=== PATIENT | female | born 1985 ===

== ENCOUNTER → 2020-08-31 | Outpatient (CLI) | payer SELFPAY ==
[2020-09-05 15:09] LABS: HPV 16 Negative (Negative); HPV 18 Negative (Negative); HPV OTHER HR TYPES Negative (Negative)
== END ==
LOC: LAB SHORT 17:18
PROVIDERS: Family Medicine
DX: Z01.419 Encounter for gynecological examination (general) (routine) without abnormal findings (principal)
CPT/HCPCS: 87624; G0145

== ENCOUNTER 2022-07-12 23:46 | Emergency (ER) | payer OTHER ==
[~2022-07-12] VITALS: Ht 170.2 cm; Wt 92.5 kg
[2022-07-13 00:04] VITALS: BP 107/83
[2022-07-13] MEDS ORDERED: FAMO20 PO (04:17)
[2022-07-13] MEDS ORDERED: HYDROXYZ HCL 25MG TA (04:18)
== END 2022-07-13 04:34 | disposition home or self-care (01) ==
LOC: ER 23:46
DX: S93.602A Unspecified sprain of left foot, initial encounter (principal); W01.198A Fall on same level from slipping, tripping and stumbling with subsequent striking against other object, initial encounter
CPT/HCPCS: 73630; 99283-25

== ENCOUNTER → 2024-09-21 | Outpatient (CLI) | payer OTHER ==
[~2024-09-21] MED LIST: FAMO20 PO; HYDROXYZ HCL 25MG TA
== END | disposition home or self-care (01) ==
LOC: LAB 08:40 → LAB SHORT 08:40
DX: N39.0 Urinary tract infection, site not specified (principal)
CPT/HCPCS: 87086